=== PATIENT | male | born 1975 | race Hispanic/Latino ===

== ENCOUNTER 2019-06-16 07:00 | Day surgery (SDC) | payer MEDICAID ==
[2019-06-16] VITALS (8 sets, daily range): BP systolic 115–144; BP diastolic 77–98
[~2019-06-16] VITALS: Ht 177.8 cm; Wt 93.0 kg
[2019-06-16] MEDS ORDERED: PROPOFOL 10 MG/ML 20ML VIAL IV ONE ×2 (11:59→12:18)
[2019-06-16] MEDS ORDERED: HYDR25TA PO (12:54)
[2019-06-16] MEDS ORDERED: HYDR-3830 PO (12:55)
[2019-06-16] MEDS ORDERED: PROM25TA7 PO (12:55)
[2019-06-16] MEDS ORDERED: TRAZ-185 PO (12:55)
== END 2019-06-16 13:00 | disposition home or self-care (01) ==
LOC: ENDO 07:00 → DAH 07:00 → ENDO 13:00
PROVIDERS: ATTEND Internal Medicine Gastroenterology
DX: K29.70 Gastritis, unspecified, without bleeding (principal); K64.0 First degree hemorrhoids; R11.2 Nausea with vomiting, unspecified; I10 Essential (primary) hypertension; F41.9 Anxiety disorder, unspecified; F17.210 Nicotine dependence, cigarettes, uncomplicated; E66.9 Obesity, unspecified; Z68.29 Body mass index [BMI] 29.0-29.9, adult; Z79.899 Other long term (current) drug therapy; Z82.49 Family history of ischemic heart disease and other diseases of the circulatory system; Z83.3 Family history of diabetes mellitus
CPT/HCPCS: 43239; 45378; A4215; A4221; A4222; A4223; A4606; A4615; A4663; J2704 ×2